=== PATIENT | female | born 1960 | race Caucasian/White ===

== ENCOUNTER 2017-04-06 10:01 | Emergency (ER) | payer BC, OTHER ==
[2017-04-06 12:02] VITALS: BP 240/110
--- NOTE | 2017-04-06 12:10 | UC ---
Complaint Female HPI - HPI Summary HPI Summary: 1) Has noticed increasing urinary pain, pressure, and frequency over the last couple days. Feels like UTIs she's had in the past. Denies fever or vomiting. 2) Nasal congestion, sinus pressure, and plugged ears with a cough for about a week. 3) Has been out of BP medication for a while, having a hard time getting a prescription through [facility] because of changing providers. Has noticed a lot of HAs lately. - History Of Current Complaint Chief Complaint: UCGeneralIllness Stated Complaint: URINARY Time Seen by Provider: 04/06/17 11:48 Hx Obtained From: Patient ?: No Onset/Duration: Gradual Onset, Lasting Days Timing: Constant Severity Initially: Moderate Severity Currently: Moderate Character: Burning, Cramping Aggravating Factor(s): Urination Alleviating Factor(s): Nothing Associated Signs And Symptoms: Negative: Fever, Back Pain, Nausea, Vomiting(# Of Episodes =) - Allergies/Home Medications Allergies/Adverse Reactions: Allergies Allergy/AdvReac Type Severity Reaction Status Date / Time Morphine Allergy Headache Verified 04/06/17 11:44 Pregabalin [From Lyrica] Allergy Hives Verified 04/06/17 11:44 Home Medications: Home Medications Omeprazole CAP* [Prilosec CAP* 20 MG] 40 mg PO DAILY 04/06/17 [History Confirmed 04/06/17] amLODIPine TAB* [Norvasc 5 mg TAB*] 10 mg PO DAILY 04/06/17 [History Confirmed 04/06/17] PMH/Surg Hx/FS Hx/Imm Hx Cardiovascular History: Hypertension - Surgical History Surgical History: Yes Surgery Procedure, Year, and Place: - Right foot. - left breast lumpectomy. - tubal. - neck disk repair - Family History Known Family History: Negative: Hypertension - Social History Lives: With Family Alcohol Use: Occasionally Substance Use Type: None Smoking Status (MU): Never Smoked Tobacco Review of Systems Constitutional: Negative Skin: Negative Eyes: Negative ENT: Negative Respiratory: Negative Cardiovascular: Negative Gastrointestinal: Negative Genitourinary: Dysuria, Frequency, Urgency Motor: Negative Neurovascular: Negative Musculoskeletal: Negative Neurological: Headache Psychological: Negative Is Patient Immunocompromised?: No All Other Systems Reviewed And Are Negative: Yes Physical Exam Triage Information Reviewed: Yes Appearance: Well-Appearing, No Pain Distress, Well-Nourished Vital Signs: Initial Vital Signs Temp 97.9 F 04/06/17 11:34 Pulse 81 04/06/17 11:34 Resp 16 04/06/17 11:34 BP 235/118 04/06/17 11:34 Pulse Ox 98 04/06/17 11:34 Vital Signs Reviewed: Yes Eye Exam: Normal Eyes: Positive: Conjunctiva Clear ENT: Positive: Hearing grossly normal, Pharynx normal, Nasal congestion, TMs normal. Negative: Nasal drainage, Hoarse voice, Dental tenderness, Sinus tenderness Dental Exam: Other - dentures Neck exam: Normal Neck: Positive: Supple, No Lymphadenopathy Respiratory Exam: Normal Respiratory: Positive: Chest non-tender, Lungs clear, Normal breath sounds, No respiratory distress, No accessory muscle use Cardiovascular Exam: Normal Cardiovascular: Positive: RRR, No Murmur, Other: - trace swelling in hands and ankles, pt states this is normal for her, hasn't changed recently Musculoskeletal Exam: Normal Musculoskeletal: Positive: Strength Intact, ROM Intact Neurological Exam: Normal Neurological: Positive: Alert Psychological Exam: Normal Skin Exam: Normal Complaint Female Dx - Differential Dx/Diagnosis Provider Diagnoses: 1) UTI. 2) hypertensive urgency. 3) URI, likely viral Discharge - Discharge Plan Condition: Stable Disposition: HOME Prescriptions: Carvedilol TAB* [Coreg TAB*] 12.5 mg PO DAILY #180 tab Lisinopril TAB* [Prinivil TAB 10 MG*] 10 mg PO DAILY #90 tab Nitrofurantoin Macrocrystals* [Macrodantin*] 100 mg PO BID #14 cap Patient Education Materials: Urinary Tract Infection in Women (ED), Upper Respiratory Infection (ED), Hypertension (ED) Referrals: Jermain Reece NP [Primary Care Provider] - As Soon As Possible Additional Instructions: Take the whole course of antibiotics for your UTI and drink plenty of fluids. culture pending. I have refilled 2 of your blood pressure medications that should be affordable out of pocket. Please resume them and get in with your primary care provider as soon as possible. You do not show signs of a hypertensive crisis today, but if you develop chest pain, severe swelling, trouble breathing, or changes in your vision you should go right to the emergency department. Your cold virus should show gradual improvement through this week. If you have persistent or increasing sinus pressure/pain/drainage after 2 weeks of symptoms , come back here or see your primary care provider for a recheck.
== END 2017-04-06 12:18 | disposition home or self-care (01) ==
LOC: UCCORT 10:01
DX: N39.0 Urinary tract infection, site not specified (principal); I16.0 Hypertensive urgency; J06.9 Acute upper respiratory infection, unspecified; M79.89 Other specified soft tissue disorders; Z88.5 Allergy status to narcotic agent; Z88.8 Allergy status to other drugs, medicaments and biological substances
CPT/HCPCS: 81003; 87077; 87086; 87186; 99212; G0463